=== PATIENT | male | born 1990 | race Caucasian/White ===

== ENCOUNTER 2023-01-07 08:30 | Emergency (ER) | payer OTHER | END 2023-01-07 10:22 | disposition home or self-care (01) | LOC: ER 08:31 | DX: S41.119A Laceration without foreign body of unspecified upper arm, initial encounter (principal); Z53.21 Procedure and treatment not carried out due to patient leaving prior to being seen by health care provider; X58.XXXA Exposure to other specified factors, initial encounter; Y93.89 Activity, other specified; Y92.89 Other specified places as the place of occurrence of the external cause; Y99.8 Other external cause status ==

== ENCOUNTER 2025-06-30 09:08 | Emergency (ER) | payer MEDICAID, OTHER ==
[~2025-06-30] VITALS: Ht 165.1 cm; Wt 67.9 kg
[2025-06-30 09:28] VITALS: TEMP 97.6
--- NOTE | 2025-06-30 09:39 | ELECTROCARDIOGRAPH REPORT ---
[facility] Test Date: 2025-06-30 Test Time: 09:37:33 Pat Name: LETY VELASQUEZ Department: [facility]- Patient ID: [facility]-[id number] Room: Gender: M Clinical Appeals Rn: : 1990 Requested By: LEANNE MARSHALL Order Number: [id number] Reading MD: Measurements Intervals [place] Rate: 70 P: 72 WA: 155 QRS: 77 QRSD: 87 T: 22 QT: 364 QTc: 393 Interpretive Statements Sinus rhythm Probable left atrial enlargement ST elev, probable normal early repol pattern Baseline wander in lead(s) V2,V3 Please click the below link to view image of tracing.
[2025-06-30 10:03] LABS: MEAN PLATELET VOLUME 8.9 FL (7.4-10.4); RED CELL DISTRIBUTION WIDTH 13.9 % (11.5-14.5)
[2025-06-30 10:23] LABS: CREATININE 1.08 MG/DL (0.60-1.10); PRO BRAIN NATRIURETIC PEPTIDE < 30 PG/ML (0-125); TOTAL CARBON DIOXIDE 30.7 MMOL/L (24-32); eCRCL 84 ML/MIN; eGFR 78 ML/MIN
--- NOTE | 2025-06-30 10:54 | Physician Documentation ---
History of Present Illness General Chief Complaint: Shortness of Breath Stated Complaint: "HEAVY CHEST" Time Seen by MD: 10:53 OK to notify your PCP?: No Primary Medical Doctor: CELESTE Source: patient, RN notes reviewed Mode of Arrival: POV Exam Limitations: no limitations History of Present Illness Initial Comments 35-year-old male with no significant past medical history, presents complaining of chest heaviness/tightness and occasional shortness of breath over the last two weeks. Patient reports he was mountain biking two weeks ago and at that time began having chest heaviness and wheezing. he states his heart rate was in the 170s at the time. Since continued to have chest heaviness with some shortness of breath, worse with exertion. He further describes shortness of breath that has difficulty taking a full breath. Patient notes he has been on testosterone replacement therapy for the last 2.5 years. He denies history of blood clot or asthma. Medication Reconciliation Allergies: Coded Allergies: No Known Allergies (Unverified , 06/30/25) Scheduled Albuterol Sulfate (Ventolin Hfa), 2 PUFFS INH Q4HPRN Prednisone* (Prednisone*), 2 TAB PO DAILY Past Medical History Past Medical History: No Pertinent History Past Surgical History: no surgical history Drug Use: none Lives In: Home Review of Systems All Other Systems at this time: Reviewed and Negative ROS As stated above in the HPI, otherwise all systems are reviewed and negative. Physical Exam Physical Exam Vital Signs: RN Vital Signs have been reviewed: Yes, Temperature: 97.6, Source: Oral, Heart Rate: 64, Respiratory Rate: 16, BP: 128/75, Pulse Oximetry: 100, Weight: 67.900 Oxygen Flow Rate: 0 Pulse Oximetry Reflects: adequate oxygenation Physical Exam VITALS: Reviewed and as above. GENERAL: Alert, no apparent distress. HEENT: Normocephalic, atraumatic, PERRL, EOMI, dry mucosa, no erythema RESPIRATORY: Lungs clear, normal breath sounds, no respiratory distress. CHEST: No accessory muscle use, no retractions CV: Regular rate, rhythm, no edema, no murmur, No: JVD GI: Soft, non-tender, bowels sounds present, no rebound, guarding, or rigidity BACK: No CVA tenderness, or swelling MUSCULOSKELETAL No deformities, no edema SKIN: Warm and dry, no rash NEURO: Oriented x4, No motor or sensory deficit PSYCH: Normal mood and affect, no agitation Progress Results/Orders Reviewed/noted all lab results: Yes Results/Orders Orders - OHLEANNE HANSON MD Chest,Single View (06/30/25 09:33) Monitor (06/30/25 09:33) Saline Lock (06/30/25 09:33) Oxygen (06/30/25 09:33) Completed Orders - LEANNE GRAY MD Chest,Single View (06/30/25 09:33) Cbc/Diff (06/30/25 09:33) BMP (06/30/25 09:33) PBNP (06/30/25 09:33) Electrocardiogram (06/30/25 09:33) Hs Troponin I W Calculations (06/30/25 09:33) Hs Troponin I W Calculations (06/30/25 11:33) D-Dimer (06/30/25 11:42) Vital Signs 06/30/25 06/30/25 06/30/25 06/30/25 09:28 11:17 11:51 12:50 Temp 97.6 Pulse 64 62 76 72 Resp 16 17 10 14 B/P (MAP) 128/75 126/65 (85) 128/86 (100) 128/52 (77) Pulse Ox 100 98 100 98 O2 Flow Rate 0 0 0 Laboratory Tests Test 06/30/25 09:42 06/30/25 11:46 White Blood Count 8.8 Red Blood Count 5.25 Hemoglobin 16.3 Hematocrit 48.4 Mean Corpuscular Volume 92.3 Mean Corpuscular Hemoglobin 31.0 Mean Corpuscular Hemoglobin Concent 33.6 Red Cell Distribution Width 13.9 Platelet Count 259 Mean Platelet Volume 8.9 Neutrophils (%) (Auto) 71.3 Lymphocytes (%) (Auto) 18.3 L Monocytes (%) (Auto) 7.1 Eosinophils (%) (Auto) 2.9 Basophils (%) (Auto) 0.4 Neutrophils # (Auto) 6.2 Lymphocytes # (Auto) 1.6 Monocytes # (Auto) 0.6 Eosinophils # (Auto) 0.3 Basophils # (Auto) 0.0 CBC Comment D-Dimer 0.30 D-Dimer Comment Sodium Level 137 Potassium Level 3.9 Chloride Level 102 Carbon Dioxide Level 30.7 Anion Gap 4 L Blood Urea Nitrogen 19 H Creatinine 1.08 Estimated GFR/1.73 m2 78 BUN/Creatinine Ratio 17.6 Glucose Level 105 H Calcium Level 9.2 Troponin I High Sensitivity 5 4 Pro-B-Type Natriuretic Peptide < 30 Albumin 3.8 Chemistry Comments Troponin I High Sens Percent Delta 20 Troponin I Hi Sens Absolute Change -1 EKG/XRAY/CT/US/VASC/MRI EKG : Additional Comment 0937: EKG interpreted by myself to show NSR at a rate of 70bpm. Normal axis, J point elevation in V3-V5. Chest X-Ray : Additional Comments DI CHEST,SINGLE VIEW, HISTORY: CP COMPARISON: None None TECHNICAL DATA: 1 view of the chest was obtained. FINDINGS: Lines and tubes: None Cardiomediastinal silhouette: normal Pulmonary vasculature: normal Lung expansion: normal Lung airspace: normal Lung interstitium: normal Pleura: normal Pneumothorax: no Bones: Unremarkable Other: no IMPRESSION: No acute intrathoracic abnormality. Reviewed by myself. Medical Decision Making Additional information obtaine: old records (last seen in 2022 for arm laceration) Findings The patient is a 35-year-old male who presents to the emergency room with some chest heaviness has been occasional wheezing especially related to exertion, his chest x-ray was reviewed by me it demonstrated a normal cardiac silhouette normal mediastinum and normal-appearing lung grullon I interpreted as a normal chest x-ray I have also reviewed the radiologist's interpretation I have interpreted as EKG in his pulse oximetry was interpreted as normal and adequate. 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 The patient's prior hospitalizations has been reviewed the patient will be discharged Differential Diagnosis Asthma pleurisy chest pain cardiac disease pulmonary embolisms Departure Time of Disposition: 12:38 Disposition: 01 HOME / SELF CARE / HOMELESS Impression: Primary Impression: Dyspnea Qualified Codes: R06.00 - Dyspnea, unspecified Additional Impression: Chest pain Qualified Codes: R07.9 - Chest pain, unspecified Condition: Stable Discharge Instructions: Nonspecific Chest Pain, Adult, Zoby-[id number]-Fmlj, Shortness of Breath, Adult, Brne-ki-[id number] Additional Instructions: Follow up with your regular doctor if symptoms persist. Return to the ER for worsening of symptoms or other concerns. Referrals: MONIKA VO MD Prescriptions Prednisone* (Prednisone*) 20 Mg Tablet 2 TAB PO DAILY, #10 TAB Prov: LEANNE GRAY MD 06/30/25 Albuterol Sulfate (Ventolin Hfa) 90 Mcg Hfa.aer.ad 2 PUFFS INH Q4HPRN, #1 INHALER Prov: LEANNE GRAY MD 06/30/25 Education Educated: Patient Educated regarding: diagnosis, treatment, need for follow up Signature Scribe Signature: Scribed for Leanne Gray MD by Melissa Mota . 06/30/25 11:12 Attestation: The note accurately reflects work and decisions made by me.Leanne Gray MD 07/02/25 09:35 LEANNE GRAY MD Jun 30, 2025 10:54 MELISSA CAN Jun 30, 2025 11:13
--- NOTE | 2025-06-30 11:03 | RADIOLOGY REPORT ---
DI CHEST,SINGLE VIEW, HISTORY: CP COMPARISON: None None TECHNICAL DATA: 1 view of the chest was obtained. FINDINGS: Lines and tubes: None Cardiomediastinal silhouette: normal Pulmonary vasculature: normal Lung expansion: normal Lung airspace: normal Lung interstitium: normal Pleura: normal Pneumothorax: no Bones: Unremarkable Other: no IMPRESSION: No acute intrathoracic abnormality.
[2025-06-30] MEDS ORDERED: ALBU18HF2 INH (12:40)
[2025-06-30] MEDS ORDERED: PRED20TA PO (12:40)
[2025-06-30 12:50] VITALS: BP 128/52; PULSE 72; RESP 14; O2SAT 98
== END 2025-06-30 12:59 | disposition home or self-care (01) ==
LOC: ER 09:08
DX: R07.9 Chest pain, unspecified (principal); R06.02 Shortness of breath; Z79.899 Other long term (current) drug therapy
CPT/HCPCS: 36415; 71045; 80048; 83880; 84484; 85025; 85379; 93005; 99285